=== PATIENT | female | born 1965 | race African-American/Black ===

== ENCOUNTER 2016-12-27 05:46 | Inpatient (IN) ==
[2016-12-15 09:44] LABS: Eosinophils # 0.1 10*3/uL (0.0-0.87); Eosinophils % 1.4 % (0.00-10.9); Hematocrit 37.9 VOL% (35.7-47.0); Hemoglobin 12.3 GM/DL (12.0-16.0); Lymphocytes # 1.7 10*3/uL (1.4-4.0); Lymphocytes % 39.9 % (21.3-54.2); Mean Corpuscular HGB Conc 32.5 GM/DL (32-36); Mean Corpuscular Hemoglobin 29 PG (27-34); Mean Platelet Volume 10.6 FL (9.6-12.0); Monocytes # 0.4 10*3/uL (0.11-0.8); Neutrophils % 47.7 % (38.7-73.9); Platelet Count 247 T/CUMM (130-400); Red Blood Count 4.21 MC/CUMM (3.8-5.5); Red Cell Distribution Width 12.8 % (9.3-17.3); White Blood Count 4.2 T/CUMM (4-12)
[2016-12-15 10:01] LABS: PT Patient Result 10.1 SECS; Partial Thromboplastin Time 30.8 SECS (0-40)
[2016-12-15 10:20] LABS: Albumin 3.3 G/DL (3.4-5.0); Bilirubin,Total 0.5 MG/DL (0.2-1.0); Calcium 9.4 MG/DL (8.5-10.1); Osmolality,Calculated 278.4 MOS/KG (273-304); Potassium 4.5 MMOL/L (3.5-5.1); Total Protein 7.3 G/DL (6.4-8.3)
[2016-12-27] MEDS ORDERED: ceFAZolin 2,000 MG in PREMIX 1 EACH IV ONE (06:00)
[2016-12-27] MEDS ORDERED: SCOPOLAMINE 1.5 MG PATCH TRANSDERM ONE ×2 (06:12→06:34)
[2016-12-27] MEDS ORDERED: DIAZEPAM 5 MG TABLET PO ONE (06:12)
[2016-12-27] MEDS ORDERED: FAMOTIDINE 20 MG TABLET PO ONE (06:12)
[2016-12-27] MEDS ORDERED: LACTATED RINGERS 1,000 ML IV SCH (06:30)
[2016-12-27] MEDS ORDERED: DIAZEPAM 5 MG TABLET ONE (06:34)
[2016-12-27] MEDS ORDERED: FAMOTIDINE 20 MG TABLET ONE (06:34)
[2016-12-27] MEDS ORDERED: NEOSTIGMINE 10 MG/10 ML VIAL ONE ×2 (07:09→12:35)
[2016-12-27] MEDS ORDERED: GLYCOPYRROLATE 0.4 MG/2 ML VIAL ONE (07:09)
[2016-12-27] MEDS ORDERED: DEXAMETHASONE 10 MG/1 ML VIAL ONE ×2 (07:09→12:34)
[2016-12-27] MEDS ORDERED: ROCURONIUM 100 MG/10 ML VIAL IV ONE ×2 (07:09→12:35)
[2016-12-27] MEDS ORDERED: LIDOCAINE 2% 5 ML VIAL ONE (07:09)
[2016-12-27] MEDS ORDERED: ONDANSETRON 4 MG/2 ML VIAL ONE ×2 (07:09→12:34)
[2016-12-27] MEDS ORDERED: PROPOFOL 200 MG/20 ML VIAL IV ONE (07:09)
[2016-12-27] MEDS ORDERED: INDOCYANINE GREEN 25 MG VIAL IV ONE (08:26)
[2016-12-27] MEDS ORDERED: MANNITOL 12.5 GM/50 ML VIAL IV ONE (08:39)
[2016-12-27] MEDS ORDERED: diphenhydrAMINE 50 MG/1 ML VIAL IV PRN (11:37)
[2016-12-27 11:57] LABS: Amorphous Crystals,Urine Occasional /HPF (Few); Apearance,Urine CLEAR (Clear); Bilirubin,Urine Negative (Negative); Blood, Urine Negative (Negative); Glucose,Urine (UA) Negative (Negative); Ketones,Urine Negative (Negative); Mucus,Urine Occasional /LPF (Occasional); Nitrite,Urine Negative (Negative); Protein,Urine Negative; RBC,Urine 1 /HPF (0-4); Squamous Epithelial Cell,Urine Occasional /HPF (0-10); Urine Color Straw (Yellow); Urine Specific Gravity 1.005 (1.001-1.035); Urine Urobilinogen < 2.0 EU/DL (0.2-1.0); WBC,Urine <1 /HPF (0-6)
[2016-12-27] MEDS ORDERED: HYDROmorphone PCA 30 MG/30 ML SYRINGE IV SCH (12:00)
[2016-12-27 12:30] LABS: Hematocrit 35.4 VOL% (35.7-47.0); Hemoglobin 11.5 GM/DL (12.0-16.0)
[2016-12-27] MEDS ORDERED: SEVOFLURANE 1 UNIT/15 MINUTE INH ONE (12:33)
[2016-12-27] MEDS ORDERED: MIDAZOLAM 2 MG/2 ML VIAL ONE (12:34)
[2016-12-27] MEDS ORDERED: fentaNYL 100 MCG/2 ML VIAL ONE (12:34)
[2016-12-27] MEDS ORDERED: LACTATED RINGERS 2,000 ML IV ONE (12:34)
[2016-12-27] MEDS ORDERED: LABETALOL 20 MG/4 ML SYRINGE IV PRN (13:00)
[2016-12-27] MEDS ORDERED: clonazePAM 0.5 MG TABLET PO PRN (13:00)
[2016-12-27] MEDS: ACETAMINOPHEN 500 MG TABLET PO SCH ×2 (13:29→17:07)
[2016-12-27] MEDS: SODIUM CHLORIDE 0.9% 1,000 ML IV SCH (15:09)
[2016-12-27] MEDS: ONDANSETRON 4 MG/2 ML VIAL IV PRN (19:29)
[2016-12-27] MEDS: CARVEDILOL 3.125 MG TABLET PO SCH (20:57)
[2016-12-27] MEDS: FAMOTIDINE 20 MG TABLET PO SCH (20:57)
[2016-12-27] MEDS: DOCUSATE SODIUM 100 MG CAPSULE PO SCH (20:57)
[2016-12-28] MEDS: SODIUM CHLORIDE 0.9% 1,000 ML IV SCH ×4 (04:05→21:43)
[2016-12-28] MEDS: GABAPENTIN 300 MG CAPSULE PO SCH ×3 (04:26→20:49)
[2016-12-28] MEDS: ONDANSETRON 4 MG/2 ML VIAL IV PRN (06:30)
[2016-12-28 06:52] LABS: Basophils % 0.1 % (0.0-0.8); Hematocrit 34.3 VOL% (35.7-47.0); Hemoglobin 11.2 GM/DL (12.0-16.0); Immature Granulocytes % 0.6 %; Immature Granulocytes Absolute 0.05 #; Lymphocytes # 1.2 10*3/uL (1.4-4.0); Lymphocytes % 13.2 % (21.3-54.2); Mean Corpuscular HGB Conc 32.7 GM/DL (32-36); Mean Corpuscular Hemoglobin 29 PG (27-34); Mean Corpuscular Volume 88.9 FL (87-102); Mean Platelet Volume 10.8 FL (9.6-12.0); Monocytes # 0.9 10*3/uL (0.11-0.8); Monocytes % 9.8 % (1.7-12.7); Neutrophils # 6.9 10*3/uL (1.4-7.4); Neutrophils % 76.3 % (38.7-73.9); Platelet Count 198 T/CUMM (130-400); Red Blood Count 3.86 MC/CUMM (3.8-5.5); Red Cell Distribution Width 12.9 % (9.3-17.3)
[2016-12-28] MEDS: ACETAMINOPHEN 500 MG TABLET PO SCH (07:14)
[2016-12-28 07:31] LABS: Calcium 8.8 MG/DL (8.5-10.1); Osmolality,Calculated 276.4 MOS/KG (273-304); Potassium 4.4 MMOL/L (3.5-5.1)
[2016-12-28] MEDS ORDERED: ALBUTEROL 1.25 MG/3 ML NEB RESP TX PRN (07:56)
[2016-12-28] MEDS ORDERED: HYDROmorphone 2 MG/1 ML VIAL IV PRN (07:58)
[2016-12-28] MEDS: DOCUSATE SODIUM 100 MG CAPSULE PO SCH ×2 (09:11→20:49)
[2016-12-28] MEDS: ESCITALOPRAM 10 MG TABLET PO SCH (09:12)
[2016-12-28] MEDS: FAMOTIDINE 20 MG TABLET PO SCH ×2 (09:12→20:49)
[2016-12-28] MEDS: CARVEDILOL 3.125 MG TABLET PO SCH ×2 (09:12→20:49)
[2016-12-28] MEDS: BUDESONIDE/FORMOTEROL 160-4.5 INHALER 6 GM INH SCH (09:25)
[2016-12-28] MEDS: oxyCODONE/ACETAMINOPHEN 5-325 MG TABLET PO PRN ×3 (11:16→23:46)
[2016-12-29] MEDS: ESCITALOPRAM 10 MG TABLET PO SCH (08:47)
[2016-12-29] MEDS: DOCUSATE SODIUM 100 MG CAPSULE PO SCH (08:47)
[2016-12-29] MEDS: CARVEDILOL 3.125 MG TABLET PO SCH (08:47)
[2016-12-29] MEDS: GABAPENTIN 300 MG CAPSULE PO SCH (08:48)
[2016-12-29] MEDS: oxyCODONE/ACETAMINOPHEN 5-325 MG TABLET PO PRN (08:48)
[2016-12-29] MEDS: FAMOTIDINE 20 MG TABLET PO SCH (08:48)
[2016-12-29] MEDS: BUDESONIDE/FORMOTEROL 160-4.5 INHALER 6 GM INH SCH (08:49)
[2016-12-29 10:43] VITALS: BP 118/60
== END 2016-12-29 10:25 | disposition home or self-care (01) | DRG 657 ==
LOC: N.SDSINP 05:46 → N.5E 12:59
PROVIDERS: ADMIT Surgery; ATTEND Surgery

== ENCOUNTER 2017-03-05 19:44 | Inpatient (IN) ==
[2017-03-05] MEDS ORDERED: ONDANSETRON 4 MG/2 ML VIAL IV STA (23:04)
[2017-03-05] MEDS ORDERED: KETOROLAC 30 MG/1 ML VIAL IV STA (23:04)
[2017-03-05] MEDS ORDERED: MORPHINE 2 MG/1 ML SYRINGE IV STA (23:04)
[2017-03-05] MEDS ORDERED: KETOROLAC 30 MG/1 ML VIAL ONE (23:35)
[2017-03-05] MEDS ORDERED: HYDROmorphone 2 MG/1 ML VIAL IV STA (23:35)
[2017-03-05] MEDS ORDERED: ONDANSETRON 4 MG/2 ML VIAL ONE (23:35)
[2017-03-05] MEDS ORDERED: CEFEPIME 2,000 MG in SODIUM CHLORIDE 0.9% 100 ML IV STA (23:40)
[2017-03-05] MEDS ORDERED: VANCOMYCIN INJ 1,000 MG in SODIUM CHLORIDE 0.9% 250 ML IV STA (23:40)
[2017-03-06 00:07] LABS: Basophils % 0.4 % (0.0-0.8); Eosinophils # 0.1 10*3/uL (0.0-0.87); Eosinophils % 0.8 % (0.00-10.9); Hematocrit 32.1 VOL% (35.7-47.0); Hemoglobin 10.4 GM/DL (12.0-16.0); Immature Granulocytes % 0.3 %; Immature Granulocytes Absolute 0.03 #; Lymphocytes # 1.9 10*3/uL (1.4-4.0); Lymphocytes % 19.5 % (21.3-54.2); Mean Corpuscular HGB Conc 32.4 GM/DL (32-36); Mean Corpuscular Hemoglobin 29 PG (27-34); Mean Corpuscular Volume 88.4 FL (87-102); Mean Platelet Volume 10.8 FL (9.6-12.0); Monocytes # 0.9 10*3/uL (0.11-0.8); Monocytes % 9.3 % (1.7-12.7); Neutrophils # 6.8 10*3/uL (1.4-7.4); Neutrophils % 69.7 % (38.7-73.9); Platelet Count 213 T/CUMM (130-400); Red Blood Count 3.63 MC/CUMM (3.8-5.5); Red Cell Distribution Width 13.7 % (9.3-17.3); White Blood Count 9.8 T/CUMM (4-12)
[2017-03-06] MEDS ORDERED: ONDANSETRON 4 MG/2 ML VIAL ONE ×2 (00:49→10:40)
[2017-03-06] MEDS ORDERED: HYDROmorphone 2 MG/1 ML VIAL ONE (00:49)
[2017-03-06] MEDS ORDERED: CEFEPIME 2,000 MG VIAL ONE (00:49)
[2017-03-06] MEDS ORDERED: VANCOMYCIN 1,000 MG VIAL ONE (00:49)
[2017-03-06 02:37] LABS: Albumin 3.1 G/DL (3.4-5.0); Bilirubin,Total 0.5 MG/DL (0.2-1.0); Osmolality,Calculated 273.7 MOS/KG (273-304); Potassium 3.2 MMOL/L (3.5-5.1); Total Protein 7.2 G/DL (6.4-8.3)
[2017-03-06] MEDS ORDERED: ONDANSETRON 4 MG/2 ML VIAL IV PRN ×2 (02:56→10:45)
[2017-03-06] MEDS ORDERED: ONDANSETRON 4 MG/2 ML VIAL IV STA (03:00)
[2017-03-06] MEDS ORDERED: PIPERACILLIN/TAZOBACTAM 3,375 MG in SODIUM CHLORIDE 0.9% 100 ML IV STA (03:02)
[2017-03-06] MEDS ORDERED: PIPERACILLIN/TAZOBACTAM 3,375 MG VIAL IV ONE (03:09)
[2017-03-06] MEDS ORDERED: PIPERACILLIN/TAZOBACTAM 3,375 MG in SODIUM CHLORIDE 0.9% 100 ML IV SCH (03:30)
[2017-03-06] MEDS: DEXTROSE 5% LACTATED RINGERS 1,000 ML IV SCH ×2 (05:30→20:29)
[2017-03-06] MEDS ORDERED: VANCOMYCIN INJ 1,500 MG in SODIUM CHLORIDE 0.9% 500 ML IV SCH (08:00)
[2017-03-06] MEDS ORDERED: POTASSIUM CHLORIDE INJ 40 MEQ in SODIUM CHLORIDE 0.9% 500 ML IV ONE (08:00)
[2017-03-06] MEDS ORDERED: PANTOPRAZOLE 40 MG TABLET PO SCH (09:00)
[2017-03-06] MEDS ORDERED: INFLUENZA VIRUS VACCINE 0.5 ML SYRINGE IM ONE (09:00)
[2017-03-06] MEDS ORDERED: LIDOCAINE 2% TOP JELLY 5 ML TUBE TOP ONE (09:20)
[2017-03-06] MEDS ORDERED: LACTATED RINGERS 1,000 ML IV SCH (10:00)
[2017-03-06] MEDS ORDERED: MIDAZOLAM 2 MG/2 ML VIAL ONE (10:40)
[2017-03-06] MEDS ORDERED: KETOROLAC 30 MG/1 ML VIAL ONE (10:40)
[2017-03-06] MEDS ORDERED: NEOSTIGMINE 10 MG/10 ML VIAL ONE (10:40)
[2017-03-06] MEDS ORDERED: fentaNYL 100 MCG/2 ML VIAL ONE (10:40)
[2017-03-06] MEDS ORDERED: HYDROmorphone 2 MG/1 ML VIAL IV PRN (10:45)
[2017-03-06] MEDS ORDERED: clonazePAM 0.5 MG TABLET PO PRN (13:03)
[2017-03-06] MEDS: MORPHINE 2 MG/1 ML SYRINGE IV PRN (13:20)
[2017-03-06] MEDS: SULFAMETHOX/TRIMETHOPRIM 800-160 MG TABLET PO SCH ×2 (13:32→21:25)
[2017-03-06] MEDS: CARVEDILOL 3.125 MG TABLET PO SCH (19:35)
[2017-03-06] MEDS ORDERED: ENOXAPARIN 40 MG/0.4 ML SYRINGE SUBCUT SCH (21:00)
[2017-03-06] MEDS: DOCUSATE SODIUM 100 MG CAPSULE PO SCH (21:25)
[2017-03-06] MEDS: GABAPENTIN 300 MG CAPSULE PO SCH (21:25)
[2017-03-06] MEDS: ONDANSETRON ODT 4 MG TABLET PO SCH (21:26)
[2017-03-06] MEDS: PANTOPRAZOLE 40 MG TABLET PO SCH (21:26)
[2017-03-07] MEDS ORDERED: hydroCHLOROthiazide 12.5 MG CAPSULE PO SCH (09:00)
[2017-03-07] MEDS ORDERED: ESCITALOPRAM 10 MG TABLET PO SCH (09:00)
[2017-03-07] MEDS ORDERED: BUDESONIDE/FORMOTEROL 160-4.5 INHALER 6 GM INH SCH (09:00)
[2017-03-07] MEDS: SULFAMETHOX/TRIMETHOPRIM 800-160 MG TABLET PO SCH (09:21)
[2017-03-07] MEDS: CARVEDILOL 3.125 MG TABLET PO SCH (09:21)
[2017-03-07] MEDS: DOCUSATE SODIUM 100 MG CAPSULE PO SCH (09:22)
[2017-03-07] MEDS: GABAPENTIN 300 MG CAPSULE PO SCH (09:23)
[2017-03-07] MEDS: ONDANSETRON ODT 4 MG TABLET PO SCH (09:23)
[2017-03-07] MEDS: PANTOPRAZOLE 40 MG TABLET PO SCH (09:23)
[2017-03-07] MEDS: MORPHINE 2 MG/1 ML SYRINGE IV PRN (11:01)
[2017-03-07 11:58] VITALS: BP 125/58
== END 2017-03-07 13:10 | disposition home or self-care (01) | DRG 346 ==
LOC: N.ED 19:44 → N.EDINP 03-06 02:56 → N.2E 03-06 03:53
PROVIDERS: ADMIT Surgery; ATTEND Surgery